=== PATIENT | male | born 1990 | race American Indian/Alaskan Native ===

== ENCOUNTER 2018-05-12 10:12 | Emergency (ER) | payer SELFPAY ==
[2018-05-12 10:35] VITALS: BP 140/86
== END 2018-05-12 12:00 | disposition left against medical advice (07) ==
LOC: ED 10:12
DX: R07.89 Other chest pain (principal); Z53.21 Procedure and treatment not carried out due to patient leaving prior to being seen by health care provider
CPT/HCPCS: 93005; 93010